=== PATIENT | male | born 1985 | race Caucasian/White ===

== ENCOUNTER 2018-11-01 16:21 | Inpatient (IN) ==
[2018-11-01 18:12] LABS: BASO# 0.04 X1000 (0.0-0.2); BASO% 0.6 % (0.0-0.8); EOS# 0.32 X1000 (0.0-0.7); EOS% 4.8 % (0.0-10.0); HEMATOCRIT 49.1 % (42.0-52.0); HEMOGLOBIN 17.6 g/dL (14.0-18.0); IMM GRAN# 0.02 X1000 (0.0-0.04); IMM GRAN% 0.3 % (0.0-0.5); LYMPH# 1.42 X1000 (1.2-3.4); LYMPH% 21.5 % (20.5-51.1); MCHC 35.8 g/dL (33-37); MCV 83.8 FL (81-99); MONO# 1.11 X1000 (0.11-0.59); MONO% 16.8 % (1.7-9.3); MPV 10.8 FL (7.4-10.4); PLT 213 X1000 (130-400); RBC 5.86 XMIL (4.7-6.1); RDW 16.2 % (11.5-14.5); WBC 6.61 X1000 (4.8-10.8)
--- NOTE | 2018-11-01 18:13 | PROVIDER DOCUMENTATION ---
HPI-Abdominal Pain/GI Problem - General Chief Complaint: Abdominal Pain Stated Complaint: ABD PAIN, N/V Time Seen by Provider: 11/01/18 17:06 Source: patient, family Allergies/Adverse Reactions: Patient Allergies Allergy/AdvReac Type Severity Reaction Status Date / Time bacitracin Allergy RASH Verified 09/03/16 18:25 [From Neosporin ([id number])] bacitracin zinc * Allergy RASH Verified 09/03/16 18:25 [From Neosporin ([id number])] neomycin sulfate * Allergy RASH Verified 09/03/16 18:25 [From Neosporin ([id number])] polymyxin B Allergy RASH Verified 09/03/16 18:25 [From Neosporin ([id number])] Home Medications: Home Medication List Medication Instructions Recorded Confirmed Last Taken Type NK [No Home Medications] 11/01/18 11/01/18 Unknown History - History of Present Illness-ABD Nature of Presenting Problems: PATIENT IS 33 Y/O PRESENTED WITH REDNESS IN BOTH EYES, LLQ PAIN AND VOMITED COUPLE TIMES, PATIENT COMPLAINED DARK URINE BUT NO DYSURIA WAS REPORTED. NO FEVER WAS REPORTED, PATIENT WAS DRINKER Abdominal Pain Onset Location: reports: LLQ Pain Radiation: reports: no radiation Quality of Pain: reports: dull Severity in ED: reports: mild Onset/Duration: reports: this morning Timing: reports: still present Activities at Onset: reports: none Exposure to sick contacts?: No Modifying Factors: improves with: nothing Associated Symptoms: denies: anxiety, back/neck pain, chest pain, constipation, cough, diaphoresis, shortness of breath Last BM: unsure Review of Systems - Adult - REVIEW OF SYSTEMS - ADULT Constitutional: denies: fever, fatique, night sweats Eyes: reports: redness Ears, Nose, Mouth & Throat: reports: no symptoms reported Cardiovascular: reports: no symptoms reported Respiratory: reports: no symptoms reported Gastrointestinal: reports: see HPI Genitourinary: reports: other (DARK URINE). denies: dysuria, discharge, flank pain, hematuria, urinary retention Musculoskeletal: reports: no symptoms reported Integumentary: reports: no symptoms reported Neurological: reports: no symptoms reported Psychiatric: reports: no symptoms reported Endocrine: reports: no symptoms reported Hematologic/Lymphatic: reports: no symptoms reported Allergic/Immunologic: reports: no symptoms reported Past History - Adult - PAST MEDICAL HISTORY-ADULT Review of Records: reports: Old Records Reviewed, Nursing Assessment Review, Med ications Reviewed Major Childhood Illnesses: reports: denies history Cardiovascular: reports: HTN Respiratory: reports: denies history Gastrointestinal: reports: denies history Obstetrical/Gynecological: reports: denies history Genitourinary: reports: denies history Musculoskeletal: reports: denies history Neurological: reports: denies history Endocrine/Immune: reports: denies history Other Conditions: reports: denies history - PRIOR SURGERIES/PROCEDURES Surgical/Procedure History: reports: reviewed, not pertinent - PRIOR HOSPITALIZATIONS Prior Hospitalizations: reports: none - IMMUNIZATION STATUS Childhood Immunizations: See Nurse Assessment Flu Vaccine: See Nurse Assessment - FAMILY HISTORY Family History: reviewed, not pertinent - SOCIAL HISTORY Smoking: cigarettes, greater than 1 pack/day Provider spent 3-5 mins advising pt. on dangers of tobacco.: Discussed manners to quit use, and f/u contacts for add'l counseling. Physical Exam-General - PHYSICAL EXAM-ADULT Initial Vital Signs Reviewed: Yes - CONSTITUTIONAL General Appearance: appears well, alert - EYES Eyes: PERRL/EOMI, other (REDNESS IN SCLERA) - HEAD, EARS, NOSE, MOUTH & THROAT HENMT: normocephalic/atraumatic, normal ENT inspection - NECK Neck: non-tender, supple - RESPIRATORY Respiratory: chest non-tender, lungs clear, normal breath sounds - CARDIOVASCULAR Cardiovascular: normal peripheral pulses, regular rate, rhythm, no edema, no gallop, no JVD, no murmur - GASTROINTESTINAL (ABDOMEN) Abdominal Exam: normal bowel sounds, non tender, soft, no organomegaly - LYMPHATIC Lymphatic: no adenopathy - MUSCULOSKELETAL Back Exam: normal inspection, no CVA tenderness, no vertebral tenderness. negative: CVA tenderness, ecchymosis Extremity: normal range of motion, non-tender, normal gait, normal inspection, no pedal edema - SKIN Integumentary: normal color - NEUROLOGIC Neurologic: occup therapist II-XII nml as tested, grossly normal, no motor/sensory deficits - PSYCHIATRIC Psych/Mental Status: normal mood/affect, normal thought content, normal thought process, oriented x 3 Progress - PLAN OF CARE/RESULTS Progress/Plan/Lab Results: Vital Signs - 8 hr 11/01/18 16:42 Temperature 98.7 F Pulse Rate 79 Respiratory Rate 18 Blood Pressure 169/108 O2 Sat by Pulse Oximetry 99 Laboratory Results - last 24 hr 11/01/18 16:46 POC Glucose 103 Orders Category Date Time Status FSBS [Finger Stick Blood Sugar (ED)] DIRECTED Care 11/01/18 16:44 Active Saline Loc DIRECTED Care 11/01/18 17:15 Active NPO Diet 11/01/18 17:[address] ABDOMEN/PELVIS W/O CONTRAST [CT] Stat Exams 11/01/18 17:15 Ordered AMYLASE [CHEM] Stat Lab 11/01/18 18:00 Received CBC WITH ELECTRONIC DIFF [HEME] Stat Lab 11/01/18 18:00 Results COMPREHENSIVE METABOLIC PANEL [CHEM] Stat Lab 11/01/18 18:00 Received LIPASE [CHEM] Stat Lab 11/01/18 18:[address] W/POSS RFLX CULT [URINALYSIS] Stat Lab 11/01/18 18:05 Ordered Laboratory Tests 11/01/18 11/01/18 11/01/18 16:46 18:00 18:00 WBC 6.61 RBC 5.86 Hgb 17.6 Hct 49.1 MCV 83.8 MCH 30.0 MCHC 35.8 RDW Std Deviation 16.2 H Plt Count 213 MPV 10.8 H Immature Gran % (Auto) 0.3 Neut % (Auto) 56.0 Lymph % (Auto) 21.5 Loup % (Auto) 16.8 H Eos % (Auto) 4.8 Baso % (Auto) 0.6 Immature Gran # (Auto) 0.02 Neut # (Auto) 3.70 Lymph # (Auto) 1.42 Loup # (Auto) 1.11 H Eos # (Auto) 0.32 Baso # (Auto) 0.04 Sodium Potassium Chloride Carbon Dioxide Anion Gap BUN Creatinine Estimated GFR/1.73 m2 BUN/Creatinine Ratio Glucose POC Glucose 103 Calculated Osmolality Calcium Total Bilirubin AST ALT Alkaline Phosphatase Total Protein Albumin Globulin Albumin/Globulin Ratio Amylase 26 Lipase Urine Source Urine Color Urine Clarity Urine pH Ur Specific [place] Urine Protein Urine Ketones Urine Blood Urine Nitrite Urine Bilirubin Urine Urobilinogen Urine Microscopic RBC Urine WBC Urine Microscopic WBC Ur Epithelial Cells Urine Crystals Urine Bacteria Urine Casts Urine Yeast Urine Glucose 11/01/18 11/01/18 18:00 18:00 WBC RBC Hgb Hct MCV MCH MCHC RDW Std Deviation Plt Count MPV Immature Gran % (Auto) Neut % (Auto) Lymph % (Auto) Loup % (Auto) Eos % (Auto) Baso % (Auto) Immature Gran # (Auto) Neut # (Auto) Lymph # (Auto) Loup # (Auto) Eos # (Auto) Baso # (Auto) Sodium 130 L Potassium 3.9 Chloride 91 L Carbon Dioxide 26 Anion Gap 13 BUN 6 L Creatinine 0.5 L Estimated GFR/1.73 m2 > 60 BUN/Creatinine Ratio 12 Glucose 123 H POC Glucose Calculated Osmolality 260 Calcium 9.2 Total Bilirubin 12.80 H AST 2154 H ALT 1912 H Alkaline Phosphatase 217 H Total Protein 8.1 Albumin 4.1 Globulin 4.0 Albumin/Globulin Ratio 1.0 Amylase Lipase 27 Urine Source CLEAN CATCH Urine Color YELLOW Urine Clarity CLEAR Urine pH 6.5 Ur Specific [place] 1.005 Urine Protein NEGATIVE Urine Ketones TRACE Urine Blood NEGATIVE Urine Nitrite NEGATIVE Urine Bilirubin 2+ A Urine Urobilinogen 1 Urine Microscopic RBC <10 Urine WBC TRACE A Urine Microscopic WBC <10 Ur Epithelial Cells <10 Urine Crystals NONE SEEN Urine Bacteria NEGATIVE Urine Casts NONE SEEN Urine Yeast NONE SEEN Urine Glucose NEGATIVE Discussed results and plan of care with patient. Patient agrees with plan and verbalizes understanding. Result Diagrams: 11/01/18 18:00 11/01/18 18:00 - CONSULTS/PCP/HOSPITALIST Notification #1 *Consult/PCP/Hospitalist*: Dr. Ni Time Discussed: 19:56 Reason/Comments: Admission Consult Disposition: Admit Departure - Departure Date of Disposition Decision: 11/01/18 Time of Disposition Decision: 19:19 DIAGNOSIS: Acute hepatitis, Hyponatremia Disposition: ADMITTED INPATIENT 09 Certified Medical Emergency: Emergent Condition: Stable Referrals and Follow-Ups: None,PCP [Primary Care Provider] - - Critical Care Note This patient required my direct & personal management of CC.: No Attestation - Physician/ AYUSH Attestation Patient care was provided by Advanced Practice Provider:: No The physician spent face to face time with patient:: Yes Advanced Practice Provider documentation review:: Supervising physician onsite and consulted in the evaluation and care of this patient. The physician did have a face to face encounter with the patient. - Physician/ AYUSH Attestation #2 Shift Change Time: 19:00 Patient care was provided by Advanced Practice Provider:: Yes Advanced Practice Provider:: Eric Garcia The physician spent face to face time with patient:: Yes Advanced Practice Provider documentation review:: Supervising physician onsite and consulted in the evaluation and care of this patient. The physician did have a face to face encounter with the patient.
[2018-11-01 18:23] LABS: BILIRUBIN URINE 2+ (NEGATIVE); BLOOD URINE NEGATIVE (NEGATIVE); CLARITY CLEAR (CLEAR); COLOR YELLOW; GLUCOSE URINE NEGATIVE (NEGATIVE); KETONE URINE TRACE mg/dL (NEGATIVE); LEUKOCYTES URINE TRACE (NEGATIVE); NITRITE URINE NEGATIVE (NEGATIVE); PH URINE 6.5; PROTEIN URINE NEGATIVE (NEGATIVE); SP GRAVITY URINE 1.005; UROBILINOGEN URINE 1 mg/dL
[2018-11-01 18:26] LABS: URINE SOURCE CLEAN CATCH
[2018-11-01 18:27] LABS: URINE BACTERIA NEGATIVE /HFP; URINE CAST NONE SEEN /LPF; URINE EPITHELIAL CELLS <10 /HPF (<10); URINE RBC <10 /HPF (<10); URINE WBC <10 /HPF (<10); URINE YEAST NONE SEEN /HPF
[2018-11-01 18:28] LABS: URINE CRYSTAL NONE SEEN /HPF
--- NOTE | 2018-11-01 19:04 | Diag Imaging Result Doc PS360 ---
CT ABDOMEN/PELVIS W/O CONTRAST - 11/01/2018 INDICATION: left flank pain, dark urine COMPARISON: None FINDINGS: The lung bases are clear and the heart size is normal. No radiodense renal stones. No hydronephrosis or hydroureter. No bowel obstruction or inflammation. No significant constipation. Urinary bladder, prostate, and rectum are normal. Bones are intact. IMPRESSION: Negative exam. This exam was performed using automated exposure control, adjustment of mA or kV according to patient size, and/or use of iterative reconstruction technique Electronically signed by Heath Ruiz 11/01/2018 7:02 PM
[2018-11-01 19:11] LABS: AGAP 13; ALBUMIN 4.1 g/dL (3.5-5.0); ALKALINE PHOSPHATASE 217 U/L (32-122); BUN 6 mg/dL (8-22); CALCIUM 9.2 mg/dL (8.8-10.2); CHLORIDE 91 mmol/L (98-107); COSMO 260; CREATININE 0.5 mg/dL (0.7-1.2); ESTIMATED GFR > 60; GLUCOSE 123 mg/dL (70-104); GOT 2154 U/L (10-34); GPT 1912 U/L (10-44); LIPASE 27 U/L (13-60); POTASSIUM 3.9 mmol/L (3.5-5.1); SODIUM 130 mmol/L (136-145); TCO2 26 mmol/L (25-35); TOTAL PROTEIN 8.1 g/dL (6.3-8.3)
[2018-11-01] MEDS ORDERED: NS 1,000 ML IV ONE ×2 (19:20→20:00)
[2018-11-01] MEDS ORDERED: ZOFRAN IV PRN (20:00)
[2018-11-01 20:10] LABS: INR 1.07; PROTIME 14.5 Seconds (11.0-16.0); PTT 34.8 Seconds (22.3-41.8)
[2018-11-01] MEDS ORDERED: NICODERM PATCH TD SCH (22:00)
[2018-11-01] MEDS ORDERED: APRESOLINE IV PRN (22:56)
[2018-11-01] MEDS ORDERED: APRESOLINE IV ONE (22:56)
[2018-11-02] MEDS ORDERED: NICODERM PATCH TD PRN (00:54)
[2018-11-02 07:16] LABS: BASO# 0.05 X1000 (0.0-0.2); BASO% 0.8 % (0.0-0.8); EOS# 0.29 X1000 (0.0-0.7); EOS% 4.9 % (0.0-10.0); HEMATOCRIT 45.7 % (42.0-52.0); HEMOGLOBIN 16.5 g/dL (14.0-18.0); IMM GRAN# 0.02 X1000 (0.0-0.04); IMM GRAN% 0.3 % (0.0-0.5); LYMPH# 1.36 X1000 (1.2-3.4); LYMPH% 22.9 % (20.5-51.1); MCH 30.2 PG (27-31); MCHC 36.1 g/dL (33-37); MCV 83.5 FL (81-99); MONO# 1.38 X1000 (0.11-0.59); MONO% 23.3 % (1.7-9.3); NEUT# 2.83 X1000 (1.4-6.5); NEUT% 47.8 % (42.2-75.2); PLT 205 X1000 (130-400); RBC 5.47 XMIL (4.7-6.1); RDW 16.2 % (11.5-14.5); WBC 5.93 X1000 (4.8-10.8)
[2018-11-02 07:27] LABS: AGAP 12; ALBUMIN 3.5 g/dL (3.5-5.0); ALKALINE PHOSPHATASE 181 U/L (32-122); BUN 5 mg/dL (8-22); CALCIUM 8.6 mg/dL (8.8-10.2); CHLORIDE 95 mmol/L (98-107); COSMO 263; CREATININE 0.5 mg/dL (0.7-1.2); ESTIMATED GFR > 60; GLUCOSE 87 mg/dL (70-104); POTASSIUM 4.3 mmol/L (3.5-5.1); SODIUM 133 mmol/L (136-145); TCO2 26 mmol/L (25-35); TOTAL PROTEIN 6.3 g/dL (6.3-8.3)
[2018-11-02 07:33] LABS: INR 1.24; PROTIME 16.2 Seconds (11.0-16.0)
[2018-11-02 07:34] LABS: PTT 35.4 Seconds (22.3-41.8)
[2018-11-02 07:40] LABS: GOT 1688 U/L (10-34); GPT 1475 U/L (10-44)
--- NOTE | 2018-11-02 08:23 | Diag Imaging Result Doc PS360 ---
EXAM: US GB < RUQ (LIMITED) - 11/02/2018 HISTORY: abd pain TECHNIQUE: Ultrasound gallbladder COMPARISON: 11/01/[address] renal stone search FINDINGS: The gallbladder appears moderately distended, measuring 9 cm in length by 4.3 cm in diameter. There are no gallstones or sludge identified. There is no abnormal gallbladder wall thickening or pericholecystic fluid identified. The technologist reports positive sonographic Alan's sign. The common bile duct is upper normal in caliber at 6 mm. There is a 3.4 x 3.5 x 3.7 cm hyperechoic area in the liver. Considerations include asymmetrical fatty infiltration, cavernous hemangioma, and other mass lesion. This is not discretely visible on the recent CT renal stone search. Doppler image shows hepatopedal flow in the portal vein. There is an apparent 1.5 cm lymph between the pancreas and liver. The visualized pancreas shows no discrete abnormality. The right kidney is unremarkable. Visualized portions of the aorta appear normal caliber. IMPRESSION: Moderately distended gallbladder. No evidence of gallstones. The technologist reports positive sonographic Alan's sign, but the gallbladder florian do not appear thickened. Upper normal caliber common bile duct at 6 mm. 3.4 x 3.5 x 3.7 cm hyperechoic area of liver. Considerations include asymmetrical fatty infiltration, cavernous hemangioma, and other mass lesion. CT abdomen with intravenous contrast could be considered for further evaluation. Mildly prominent lymph node between liver and pancreas. No visible pancreatic lesion. Electronically signed by Ludwig Diaz 11/02/2018 8:21 AM
[2018-11-02 08:38] LABS: EOS 2 % (1-10); LYMPHS 19 % (21-51); MONO 19 % (1-9); SEGS 59 % (42-75)
[2018-11-02] MEDS ORDERED: M.V.I.-12 10 ML, FOLIC ACID 1 MG, MAGNESIUM SULFATE 1 GM, THIAMINE 100 MG in NS 1,000 ML IV SCH (09:00)
--- NOTE | 2018-11-02 09:04 | HISTORY AND PHYSICAL ---
PRIMARY CARE PHYSICIAN: None. CHIEF COMPLAINT: Left lower quadrant pain, nausea and vomiting 2 to 3 times a day that began Tuesday and progressively has worsened. HISTORY OF PRESENTING ILLNESS: This is a 33-year-old male who presents to [facility] ER with complaints of left lower quadrant abdominal pain that radiated throughout his entire stomach. He had some vomiting 2 to 3 times a day when he tried to eat, could not hold anything down. These symptoms began on Tuesday and progressively worsened. He states that he drinks a pint of liquor and 4 to 5 beers daily and has been doing that for about 10 years. His workup in the emergency room showed a total bilirubin of 12.80, AST of 2154, ALT 1912, and alkaline phosphatase 217. We did a CT of the abdomen and pelvis that was negative. We did do an abdomen ultrasound that showed a moderately distended gallbladder. No evidence of gallstones, and the gallbladder wall did not appear thickened. He is being admitted for further evaluation and treatment. PAST MEDICAL HISTORY: Hypertension. PAST SURGICAL HISTORY: None. FAMILY HISTORY: Reviewed and noncontributory. SOCIAL HISTORY: Currently lives with his . Smokes a pack of cigarettes a day and has done so for approximately 15 years. Drinks 1 pint of liquor and 4 to 5 beers daily, and has done so for about 10 years. Denies any illicit drug use. ALLERGIES: He has no known drug allergies. HOME MEDICATIONS: He does not take any medications on a routine basis at this time. LABORATORY DATA: White blood cell count of 6.61, hemoglobin 17.6, hematocrit 49.1, and platelets 213,000. PT and INR of 14.5 and 1.07. Sodium was 130, potassium 3.9, chloride 91, CO2 26, BUN of 6, creatinine 0.5, glucose 123, total bilirubin of 12.8, AST 2154, ALT 1912 with an alkaline phosphatase of 217. Repeat labs this morning showed a total bilirubin of 12.20, AST down to 1688 and ALT down to 1475 with an alkaline phosphatase of 181. Urinalysis was negative. Urine drug screen showed none detected. Acetaminophen less than 1.2. CT of the abdomen and pelvis showed an impression of a negative exam. Abdominal ultrasound showed an impression of a moderately distended gallbladder. No evidence of gallstones. Technologist reported a positive sonographic Alan's sign, but the gallbladder florian do not appear thickened. Upper normal caliber common bile duct at 6 mm. He has a hyperechoic area of the liver. Considerations include asymmetrical fatty infiltration, cavernous hemangioma and other mass lesion, but his CT again was negative. REVIEW OF SYSTEMS: He denies any fever, chills, blurred vision, dizziness, chest pain, coughing, or shortness of breath. He has diffuse abdominal pain worse in the left lower quadrant, nausea or vomiting. Denied any diarrhea, constipation, burning or hurting with urination. PHYSICAL EXAMINATION: VITAL SIGNS: On arrival, he had a temperature of 98.7 degrees, pulse of 79, respirations 18, blood pressure 169/108, and saturating 99% on room air. GENERAL: This is a 33-year-old male who is sitting up in the bed and answers questions appropriately. HEENT: Normocephalic, atraumatic. Normal ENT inspection. Oropharynx and nares are clear. EYES: Pupils are equal, round, and reactive to light and accommodation. Extraocular movements are intact. He is noted to have bloodshot eyes of his sclera bilaterally. Certainly, could be reddened due to all of the vomiting he has been doing. NECK: Normal inspection. Normal range of motion. LUNGS: Clear to auscultation bilaterally with equal lung expansion and chest wall movement. HEART: Regular rate and rhythm. No murmurs, rubs, or gallops. ABDOMEN: Soft. There is tenderness to palpation throughout his abdomen. Bowel sounds are present x4 quadrants. MUSCULOSKELETAL: He has 5/5 strength x4 extremities. NEUROLOGICAL: The cranial nerves 2-12 appear grossly intact. ASSESSMENT: 1. Acute hepatitis secondary to ETOH abuse. 2. Hyponatremia. 3. Hypertension. 4. ETOH use and abuse. PLAN: He was admitted to the medical unit at [place], placed on telemetry, and healthy heart diet. We are obtaining a hepatitis profile and urine culture is pending. We have given him hydralazine 10 mg IV q.6h p.r.n. for systolic blood pressure greater than 180, diastolic greater than 100. Nicotine patch 21 mg transdermally daily. Zofran 4 mg IV q.4 hours p.r.n. I am going to give him a banana bag of fluids daily, and then normal saline at 75 mL an hour. Give him Ativan 1 mg IV q.4 hours p.r.n. for withdrawal symptoms of alcohol, and I am going to place him on a Librium taper. The patient does state that he wants to quit drinking now, so we will facilitate that during this hospitalization as well. We will monitor his blood pressure. If it continues to be elevated after he goes through the withdrawal of alcohol, then we may need to place him on an antihypertensive medication, but we will continue to evaluate. Recheck a CBC and CMP in the morning. Dictated by LIZABETH Morrissey for Alan Ni MD cc: LIZABETH Morrissey MD
[2018-11-02] MEDS: M.V.I.-12 10 ML, FOLIC ACID 1 MG, MAGNESIUM SULFATE 1 GM, THIAMINE 100 MG in NS 1,000 ML IV SCH (10:23)
[2018-11-02] MEDS: LIBRIUM PO SCH ×3 (10:24→21:48)
--- NOTE | 2018-11-02 11:15 | Diag Imaging Result Doc PS360 ---
EXAM: CT ABDOMEN W/CONTRAST - 11/02/2018 HISTORY: hepatic protocol, liver lesion TECHNIQUE: CT abdomen with intravenous contrast COMPARISON: 11/02/2018 ultrasound gallbladder, 11/01/[address] renal stone search FINDINGS: The liver demonstrates mildly heterogeneous attenuation. There is no discrete focal liver lesion identified. The heterogeneous attenuation may relate to asymmetrical mild fatty infiltration of the liver. The gallbladder is mildly distended as noted on the earlier ultrasound. There is a small amount of pericholecystic fluid which is most conspicuous near the base of the gallbladder. There are no calcified gallstones or gross pericholecystic inflammation identified. The spleen and adrenal glands are unremarkable. There is no pancreatic mass or inflammation identified. There are small retroperitoneal and mesenteric lymph nodes. The bilateral kidneys enhance homogeneously. There is no hydronephrosis. There is a tiny fat-containing umbilical hernia. There is no evidence of bowel obstruction. The appendix is unremarkable. There is no gas containing abscess identified. There is no free air or substantial free fluid identified. IMPRESSION: Mildly heterogeneous attenuation of liver suggesting asymmetrical fatty infiltration. No discrete focal liver lesion identified. Moderately distended gallbladder. Small amount of pericholecystic fluid. Early cholecystitis cannot be excluded. Small retroperitoneal and mesenteric lymph nodes. Tiny fat-containing umbilical hernia. This exam was performed using automated exposure control, adjustment of mA or kV according to patient size, and/or use of iterative reconstruction technique. Electronically signed by Ludwig Diaz 11/02/2018 11:12 AM
[2018-11-02] MEDS ORDERED: MEDROL DOSEPAK PO SCH (16:00)
--- NOTE | 2018-11-02 16:50 | HISTORY AND PHYSICAL ---
ADDENDUM This is a pleasant 33-year-old coming in with pain, abdominal pain, nausea, vomiting. He is a heavy drinker. He told me half a pint; he told the nurse practitioner this morning a full pint, 4 to 5 beers a day. His or significant other says it is a pints on the weekends definitely, which I am thinking is 6 to 8 drinks a day, possibly more than that. CT was unremarkable, but he had profound hyperbilirubinemia. On his eye exam, he also has some conjunctival hemorrhage. AST and ALT were both 2154 and 1688, 1912 and 1475. The patient was admitted for acute hepatitis. Unclear if this is alcoholic hepatitis versus other. We will continue to him to monitor hydration and follow. We will calculate Discriminant Function and follow. If he is not much improved, may need to consider a Gastroenterology consultation, but the patient is stable. This is a [id number] encounter note with Ruth Ahuja. cc: Alan Ni MD
[2018-11-02] MEDS: PROTONIX IV SCH (16:52)
[2018-11-02] MEDS: SODIUM CHLORIDE 0.9% INJ SCH (16:52)
[2018-11-02] MEDS: MEDROL PO SCH ×2 (16:54→21:48)
[2018-11-02] MEDS: NS 1,000 ML IV SCH (17:48)
[2018-11-02] MEDS: PLETAL PO SCH (21:48)
[2018-11-03] MEDS: LIBRIUM PO SCH ×4 (03:40→20:43)
[2018-11-03] MEDS: NS 1,000 ML IV SCH ×3 (06:54→23:25)
[2018-11-03 07:51] LABS: BASO# 0.01 X1000 (0.0-0.2); BASO% 0.2 % (0.0-0.8); EOS# 0.01 X1000 (0.0-0.7); EOS% 0.2 % (0.0-10.0); HEMATOCRIT 47.9 % (42.0-52.0); HEMOGLOBIN 17.1 g/dL (14.0-18.0); IMM GRAN# 0.01 X1000 (0.0-0.04); IMM GRAN% 0.2 % (0.0-0.5); LYMPH# 0.65 X1000 (1.2-3.4); LYMPH% 10.8 % (20.5-51.1); MCH 29.9 PG (27-31); MCHC 35.7 g/dL (33-37); MCV 83.7 FL (81-99); MONO# 0.41 X1000 (0.11-0.59); MONO% 6.8 % (1.7-9.3); MPV 11.2 FL (7.4-10.4); NEUT# 4.95 X1000 (1.4-6.5); NEUT% 81.8 % (42.2-75.2); PLT 240 X1000 (130-400); RBC 5.72 XMIL (4.7-6.1); WBC 6.04 X1000 (4.8-10.8)
[2018-11-03 08:07] LABS: AGAP 13; ALBUMIN 3.5 g/dL (3.5-5.0); ALKALINE PHOSPHATASE 193 U/L (32-122); BUN 5 mg/dL (8-22); CALCIUM 8.5 mg/dL (8.8-10.2); CHLORIDE 97 mmol/L (98-107); COSMO 265; CREATININE 0.4 mg/dL (0.7-1.2); ESTIMATED GFR > 60; GLUCOSE 123 mg/dL (70-104); POTASSIUM 4.5 mmol/L (3.5-5.1); SODIUM 133 mmol/L (136-145); TCO2 23 mmol/L (25-35)
[2018-11-03 08:19] LABS: GOT 1303 U/L (10-34); GPT 1366 U/L (10-44)
[2018-11-03] MEDS: M.V.I.-12 10 ML, FOLIC ACID 1 MG, MAGNESIUM SULFATE 1 GM, THIAMINE 100 MG in NS 1,000 ML IV SCH (09:28)
[2018-11-03] MEDS: MEDROL PO SCH ×2 (09:32→14:01)
--- NOTE | 2018-11-03 10:08 | PROGRESS NOTE ---
DATE: 11/03/2018 SUBJECTIVE: Patient had some epigastric pain this morning. He denies having any other complaints. OBJECTIVE: Vital Signs: Temperature 97.7 degrees, pulse 101 per minute, respiratory rate 19 per minute, blood pressure 124/80, and pulse oximetry 100% on room air. General: Patient is alert and oriented x3. He does not appear to be in any acute distress. Cardiovascular: First and second heart sounds are audible without any murmurs or gallops. Respiratory: No respiratory distress noted. Bilateral lung air entry is good without any rales or rhonchi. Gastrointestinal: Patient is morbidly obese. Abdomen is soft and slightly tender in epigastric area. Normal bowel sounds are present. DIAGNOSTIC DATA: CBC is nondiagnostic. Chemistry shows a total bilirubin of 12.10, AST 28896, and ALT 1366. In comparison, his bilirubin was 12.8, AST 2154 and ALT 1912 on admission 2 days ago. Gallbladder ultrasound showed moderately distended gallbladder with no evidence of gallstones, but technologist reported positive sonographic Alan sign. Gallbladder wall did not appear to be thickened, but the CBD was in the upper normal caliber limit at [address] scan of the abdomen with contrast showed moderately distended gallbladder with small amount of pericholecystic fluid. Early cholecystitis could not be ruled out. IMPRESSION: 1. Epigastric abdominal pain with transaminasemia and elevated bilirubin with signs of acute cholecystitis on CT scan and gallbladder ultrasound. 2. History of alcohol abuse with possible alcoholic hepatitis. 3. Hypertension. PLAN: The patient will be continued on IV fluids, and I am going to start him on IV Zosyn as well. We will keep him NPO and give him supportive care. I am going to obtain a surgical consultation to assist us in further evaluating this 33-year-old gentleman. Further recommendations will be as per hospital course. cc: Nader Taylor MD
[2018-11-03 10:17] LABS: HEPATITIS PROFILE ACUTE SEE COMMENTS
[2018-11-03] MEDS: ZOSYN 3.375 GM in NS 50 ML IV SCH ×3 (10:22→20:43)
--- NOTE | 2018-11-03 14:17 | Diag Imaging Result Doc PS360 ---
EXAM: HIDA SCAN W/ EJECTION FRACTION HISTORY: Poss cholecystits TECHNIQUE: Nuclear medicine HIDA scan COMPARISON: None. FINDINGS: 5.1 mCi Choletec administered. There is normal uptake of 30 pharmaceutical in the liver. Normal filling of the gallbladder. There is emptying into the small bowel. Ensure was given to calculate the gallbladder ejection fraction. This is determined to be only 9.7% at 60 minutes. This is well below the normal range. IMPRESSION: Abnormal exam with a below normal gallbladder ejection fraction. Electronically signed by Ezekiel Lucio 11/03/2018 2:15 PM
[2018-11-03] MEDS: PLETAL PO SCH ×2 (14:38→20:43)
[2018-11-03] MEDS: PROTONIX IV SCH (16:07)
[2018-11-03] MEDS: SODIUM CHLORIDE 0.9% INJ SCH (16:07)
[2018-11-04] MEDS: LIBRIUM PO SCH ×4 (02:38→20:11)
[2018-11-04] MEDS: ZOSYN 3.375 GM in NS 50 ML IV SCH ×3 (02:39→18:30)
[2018-11-04] MEDS: NS 1,000 ML IV SCH ×3 (02:58→22:50)
[2018-11-04 06:31] LABS: PLT 252 X1000 (130-400)
[2018-11-04 06:33] LABS: HEMATOCRIT 40.6 % (42.0-52.0); MCH 30.7 PG (27-31); MCHC 36.9 g/dL (33-37); RBC 4.86 XMIL (4.7-6.1)
[2018-11-04 06:34] LABS: MCV 83.5 FL (81-99); MPV 10.8 FL (7.4-10.4); NEUT% 75.1 % (42.2-75.2); RDW 17.1 % (11.5-14.5)
[2018-11-04 06:35] LABS: BASO% 0.1 % (0.0-0.8); EOS% 1.3 % (0.0-10.0); IMM GRAN% 0.2 % (0.0-0.5); NEUT# 7.77 X1000 (1.4-6.5)
[2018-11-04 06:36] LABS: BASO# 0.01 X1000 (0.0-0.2); EOS# 0.13 X1000 (0.0-0.7); IMM GRAN# 0.02 X1000 (0.0-0.04); MONO# 1.21 X1000 (0.11-0.59)
[2018-11-04 06:39] LABS: LYMPH% 11.6 % (20.5-51.1); MONO% 11.7 % (1.7-9.3)
[2018-11-04 06:52] LABS: AGAP 11; ALBUMIN 3.1 g/dL (3.5-5.0); ALKALINE PHOSPHATASE 205 U/L (32-122); BUN 8 mg/dL (8-22); CALCIUM 7.9 mg/dL (8.8-10.2); CHLORIDE 103 mmol/L (98-107); COSMO 274; CREATININE 0.6 mg/dL (0.7-1.2); ESTIMATED GFR > 60; GLUCOSE 105 mg/dL (70-104); SODIUM 138 mmol/L (136-145); TCO2 24 mmol/L (25-35); TOTAL PROTEIN 5.8 g/dL (6.3-8.3)
[2018-11-04 06:54] LABS: HEMOGLOBIN 14.9 g/dL (14.0-18.0); WBC 10.34 X1000 (4.8-10.8)
[2018-11-04 06:57] LABS: GOT 806 U/L (10-34); GPT 960 U/L (10-44)
--- NOTE | 2018-11-04 08:37 | CONSULTATION ---
DATE OF CONSULTATION: 11/04/2018 Mr. Chuck Lovelace is a 33-year-old white male who presented to [facility] Emergency Department Tuesday of this week with abdominal pain, nausea and vomiting and his noticed that his eyes were yellow. He also admitted to a decreased appetite. He was admitted on 11/01/2018 through the emergency department after a CT scan of his abdomen and pelvis was performed. That CT was read as essentially normal. He did have significantly elevated liver function tests with a total bilirubin of 12 and an ALT and AST within the thousands. An ultrasound of the gallbladder showed no stones and a repeat CT scan of the abdomen suggested a moderately distended gallbladder with some fluid but not a thickened gallbladder wall. We were asked to evaluate him for possible gallbladder disease. PAST MEDICAL HISTORY: Alcohol abuse. MEDICATIONS: None. ALLERGIES: Bacitracin. REVIEW OF SYSTEMS: He is a smoker. Otherwise 14 point review of systems was essentially negative. FAMILY HISTORY: Noncontributory. PHYSICAL EXAMINATION: General: Mr. Lovelace is a young white male who is awake, cooperative in no acute distress. He is of good weight. HEENT: He still has evidence of jaundice when looking at his eyes. There are no oral lesions. Lymph: No cervical or supraclavicular lymphadenopathy. Heart: Regular rate. Lungs: Clear. No work of breathing. Abdomen: Soft without tenderness. No previous scar. No evidence of hernia. No palpable mass. No costovertebral tenderness. Rectal: Examination was not performed. Extremities: He does have palpable peripheral pulses throughout. No peripheral edema. Neurological: He is alert and oriented x3 and appropriate. LABORATORY DATA: His liver function tests were elevated. X-rays of the gallbladder appeared to be within normal limits. IMPRESSION: Primary liver disease consistent with acute hepatitis. PLAN: Supportive care. I have discussed this with Dr. Taylor. cc: MD Alan Nichols MD
[2018-11-04] MEDS: PLETAL PO SCH ×2 (09:34→20:10)
--- NOTE | 2018-11-04 11:59 | PROGRESS NOTE ---
DATE: 11/04/2018 SUBJECTIVE: Patient still has some epigastric discomfort, although he feels much better as compared to yesterday. OBJECTIVE: Vital Signs: Temperature 97.5 degrees, pulse 79 per minute, respiratory 16 per minute, blood pressure 127/61, pulse oximetry 99% on room air. General: Patient is alert and oriented x3. He does not appear to be in any acute distress. Cardiovascular System: First and second heart sounds are audible without any murmurs or gallops. Respiratory System: Bilateral lung air entry is moderately decreased but there are no rales or rhonchi present on auscultation. Gastrointestinal: Patient is morbidly obese. Abdomen is soft and slightly tender on deep palpation in the epigastric area. No guarding or rigidity are present. Normal bowel sounds are present. LABORATORY AND DIAGNOSTIC DATA: CBC is nondiagnostic. Comprehensive metabolic panel showed AST of 806 and ALT 960, along with alkaline phosphatase 205. In comparison, his AST was 1303 and ALT 1366 yesterday. His total bilirubin has also improved from 12.10 yesterday to 8.60 today. His HIDA scan was found to be abnormal with below normal gallbladder ejection fraction. He also had abdominal CT scan on 11/02/2018 that showed moderately distended gallbladder with small amount of pericholecystic fluid. Surgical consultation with Dr. Townsend was obtained, who does not think that he has acute cholecystitis but rather he is having acute alcoholic hepatitis that is already gradually getting better. IMPRESSION: 1. Jaundice with transaminasemia secondary to alcoholic hepatitis. 2. Hypertension. PLAN: The patient will be continued on IV fluids along with IV Zosyn and we are going to continue giving him supportive care including proton pump inhibitors. We are going to repeat labs including CBC, CMP, amylase, and lipase tomorrow and see if there is any further improvement. If clinically he feels better, he can probably be discharged home tomorrow. cc: MD Alan Alvarez MD
[2018-11-04] MEDS: M.V.I.-12 10 ML, FOLIC ACID 1 MG, MAGNESIUM SULFATE 1 GM, THIAMINE 100 MG in NS 1,000 ML IV SCH (12:26)
[2018-11-04] MEDS ORDERED: SODIUM CHLORIDE 0.9% 10 ML ONE (13:32)
[2018-11-04] MEDS: SODIUM CHLORIDE 0.9% INJ SCH (16:30)
[2018-11-04] MEDS: PROTONIX IV SCH (16:30)
[2018-11-04] MEDS ORDERED: MORPHINE IV ONE (21:04)
[2018-11-05] MEDS: ZOSYN 3.375 GM in NS 50 ML IV SCH ×5 (00:10→23:49)
[2018-11-05] MEDS: LIBRIUM PO SCH (03:21)
[2018-11-05 06:02] LABS: BASO# 0.04 X1000 (0.0-0.2); BASO% 0.6 % (0.0-0.8); EOS% 4.5 % (0.0-10.0); HEMATOCRIT 40.7 % (42.0-52.0); HEMOGLOBIN 14.5 g/dL (14.0-18.0); IMM GRAN# 0.01 X1000 (0.0-0.04); IMM GRAN% 0.1 % (0.0-0.5); LYMPH# 1.45 X1000 (1.2-3.4); LYMPH% 21.7 % (20.5-51.1); MCH 29.7 PG (27-31); MCHC 35.6 g/dL (33-37); MCV 83.4 FL (81-99); MONO# 1.19 X1000 (0.11-0.59); MONO% 17.8 % (1.7-9.3); MPV 10.6 FL (7.4-10.4); NEUT% 55.3 % (42.2-75.2); PLT 259 X1000 (130-400); RBC 4.88 XMIL (4.7-6.1); RDW 17.7 % (11.5-14.5); WBC 6.69 X1000 (4.8-10.8)
[2018-11-05 06:27] LABS: AGAP 11; ALKALINE PHOSPHATASE 167 U/L (32-122); AMYLASE 24 U/L (20-200); BUN 6 mg/dL (8-22); CALCIUM 7.8 mg/dL (8.8-10.2); CHLORIDE 103 mmol/L (98-107); COSMO 275; CREATININE 0.7 mg/dL (0.7-1.2); ESTIMATED GFR > 60; GLUCOSE 90 mg/dL (70-104); LIPASE 25 U/L (13-60); POTASSIUM 3.8 mmol/L (3.5-5.1); SODIUM 139 mmol/L (136-145); TCO2 24 mmol/L (25-35); TOTAL PROTEIN 5.6 g/dL (6.3-8.3)
[2018-11-05 06:42] LABS: GOT 912 U/L (10-34); GPT 992 U/L (10-44)
[2018-11-05] MEDS: M.V.I.-12 10 ML, FOLIC ACID 1 MG, MAGNESIUM SULFATE 1 GM, THIAMINE 100 MG in NS 1,000 ML IV SCH (09:02)
[2018-11-05] MEDS: PLETAL PO SCH ×2 (09:02→21:08)
--- NOTE | 2018-11-05 10:41 | PROGRESS NOTE ---
DATE: 11/05/2018 SUBJECTIVE: The patient denies having any acute complaints this morning but states that he has slight discomfort on the left side of his abdomen. He feels much better as compared to the previous days, however. OBJECTIVE: Vital Signs: Temperature 98.3 degrees, pulse 74 per minute, respiratory rate 16 per minute, blood pressure 145/75, pulse oximetry 99% on room air. General: Patient is alert and oriented x3. He does not appear to be in any acute distress. Cardiovascular System: First and second heart sounds are audible without any murmurs or gallops. Respiratory System: No respiratory distress noted. Bilateral lung air entry is good without any rales or rhonchi. Gastrointestinal System: The patient is morbidly obese. Abdomen is soft and slightly tender on deep palpation in the epigastric area. No guarding or rigidity were present. Normal bowel sounds are present. DIAGNOSTIC DATA: CBC is nondiagnostic. Comprehensive metabolic panel shows a total bilirubin of 7.8, AST 912, and ALT 992. In comparison, his chemistry showed similar abnormalities yesterday with slight worsening this morning. IMPRESSION: New jaundice with transaminasemia secondary to alcoholic hepatitis. PLAN: We are going to continue with IV Zosyn since there was some pericholecystic fluid and questionable cholecystitis, although surgical consultation with Dr. North was obtained who stated that he does not appear to have acute cholecystitis. He has responded well with IV antibiotics, however. We are going to continue him on IV fluids along with IV Protonix. Further recommendations will be given as per hospital course. cc: MD Alan Alvarez MD
[2018-11-05] MEDS: NS 1,000 ML IV SCH ×2 (13:10→21:10)
[2018-11-05] MEDS: PROTONIX IV SCH (16:13)
--- NOTE | 2018-11-05 16:24 | PROGRESS NOTE ---
DATE: 11/05/2018 Mr. Chuck Lovelace is a 33-year-old white male with a history of alcohol abuse, who has been hospitalized with acute hepatitis. We were asked to see him about his gallbladder, but there are no stones or evidence of acute cholecystitis. He is resting comfortably this afternoon. When he eats, he states he has some epigastric abdominal discomfort, but his abdomen is soft. He is having flatus. He has not had a recent bowel movement. His liver function tests are slowly improving. His total bilirubin is 8, his AST is 912, and his ALT is 992, but they are trending down slowly. Electrolytes are within normal limits. White blood cell count is normal. Hematocrit is 41%. He is on a heart healthy diet. He is on IV antibiotics prophylactically. We will add Colace as a stool softener. cc: MD Alan Nichols MD
[2018-11-05] MEDS: COLACE PO SCH (21:08)
[2018-11-05] MEDS: MOTRIN PO PRN (23:49)
[2018-11-06] MEDS: NS 1,000 ML IV SCH ×3 (03:36→21:17)
[2018-11-06] MEDS: ZOSYN 3.375 GM in NS 50 ML IV SCH ×4 (05:37→23:46)
[2018-11-06 06:44] LABS: BASO# 0.03 X1000 (0.0-0.2); BASO% 0.6 % (0.0-0.8); EOS# 0.36 X1000 (0.0-0.7); EOS% 6.7 % (0.0-10.0); HEMATOCRIT 42.7 % (42.0-52.0); HEMOGLOBIN 15.3 g/dL (14.0-18.0); IMM GRAN# 0.02 X1000 (0.0-0.04); IMM GRAN% 0.4 % (0.0-0.5); LYMPH# 1.42 X1000 (1.2-3.4); LYMPH% 26.3 % (20.5-51.1); MCH 29.9 PG (27-31); MCHC 35.8 g/dL (33-37); MCV 83.6 FL (81-99); MONO# 0.89 X1000 (0.11-0.59); MONO% 16.5 % (1.7-9.3); MPV 10.2 FL (7.4-10.4); NEUT# 2.68 X1000 (1.4-6.5); NEUT% 49.5 % (42.2-75.2); PLT 250 X1000 (130-400); RBC 5.11 XMIL (4.7-6.1); RDW 18.3 % (11.5-14.5)
[2018-11-06 07:03] LABS: AGAP 13; ALKALINE PHOSPHATASE 195 U/L (32-122); BUN 5 mg/dL (8-22); CHLORIDE 104 mmol/L (98-107); COSMO 278; CREATININE 0.7 mg/dL (0.7-1.2); ESTIMATED GFR > 60; GLUCOSE 95 mg/dL (70-104); POTASSIUM 3.4 mmol/L (3.5-5.1); SODIUM 141 mmol/L (136-145); TCO2 25 mmol/L (25-35); TOTAL PROTEIN 5.8 g/dL (6.3-8.3)
[2018-11-06 07:22] LABS: GOT 948 U/L (10-34); GPT 992 U/L (10-44)
[2018-11-06] MEDS: M.V.I.-12 10 ML, FOLIC ACID 1 MG, MAGNESIUM SULFATE 1 GM, THIAMINE 100 MG in NS 1,000 ML IV SCH (08:53)
[2018-11-06] MEDS: PLETAL PO SCH ×2 (08:53→21:17)
[2018-11-06] MEDS: COLACE PO SCH ×2 (08:53→21:17)
--- NOTE | 2018-11-06 15:33 | PROGRESS NOTE ---
DATE: 11/06/2018 SUBJECTIVE: Patient this morning notes that he is still having some side pain but states overall he is a little bit better. Denies any current vomiting or nausea. OBJECTIVE: Vital Signs: Temperature 37.9, pulse 70, respiratory 18, and BP 136/76. General: Patient is awake and alert. He is in no current distress. He is pleasant to talk with. He does not appear to be in any acute alcohol withdrawal. HEENT: Normocephalic. Neck: Supple. CARDIOVASCULAR: Regular rate. Chest: Clear. Abdomen: Soft. Extremities: Moves all extremities. ASSESSMENT: 1. Alcoholic hepatitis. AST and ALT continue to improve, currently down to 938 and 950. at 2154 and 1912. 2. Jaundice. Bilirubin also continues to improve, currently down to 7.7. PLAN: We will continue IV fluids. Continue Protonix and Zosyn. We will follow. cc: Mohsen Lopez MD MTDD
[2018-11-06] MEDS: SODIUM CHLORIDE 0.9% INJ SCH (17:34)
[2018-11-06] MEDS: PROTONIX IV SCH (17:34)
[2018-11-07] MEDS: NS 1,000 ML IV SCH ×2 (04:12→20:54)
[2018-11-07] MEDS: ZOSYN 3.375 GM in NS 50 ML IV SCH ×4 (05:43→23:57)
[2018-11-07 06:57] LABS: BASO# 0.04 X1000 (0.0-0.2); BASO% 0.6 % (0.0-0.8); EOS# 0.46 X1000 (0.0-0.7); EOS% 7.1 % (0.0-10.0); HEMATOCRIT 39.9 % (42.0-52.0); HEMOGLOBIN 14.5 g/dL (14.0-18.0); IMM GRAN# 0.04 X1000 (0.0-0.04); IMM GRAN% 0.6 % (0.0-0.5); LYMPH% 21.5 % (20.5-51.1); MCHC 36.3 g/dL (33-37); MCV 82.6 FL (81-99); MONO# 1.37 X1000 (0.11-0.59); MONO% 21.1 % (1.7-9.3); MPV 10.5 FL (7.4-10.4); NEUT# 3.19 X1000 (1.4-6.5); NEUT% 49.1 % (42.2-75.2); PLT 264 X1000 (130-400); RBC 4.83 XMIL (4.7-6.1); RDW 18.2 % (11.5-14.5)
[2018-11-07 07:18] LABS: AGAP 12; ALBUMIN 2.9 g/dL (3.5-5.0); ALKALINE PHOSPHATASE 161 U/L (32-122); BUN 5 mg/dL (8-22); CALCIUM 7.9 mg/dL (8.8-10.2); CHLORIDE 101 mmol/L (98-107); COSMO 271; CREATININE 0.7 mg/dL (0.7-1.2); ESTIMATED GFR > 60; GLUCOSE 95 mg/dL (70-104); GOT 783 U/L (10-34); GPT 832 U/L (10-44); POTASSIUM 3.8 mmol/L (3.5-5.1); SODIUM 137 mmol/L (136-145); TCO2 24 mmol/L (25-35); TOTAL PROTEIN 5.1 g/dL (6.3-8.3)
[2018-11-07 07:44] LABS: BASO 1 % (0-1); EOS 7 % (1-10); LYMPHS 19 % (21-51); MONO 18 % (1-9); SEGS 55 % (42-75)
[2018-11-07] MEDS: M.V.I.-12 10 ML, FOLIC ACID 1 MG, MAGNESIUM SULFATE 1 GM, THIAMINE 100 MG in NS 1,000 ML IV SCH (09:04)
[2018-11-07] MEDS: PLETAL PO SCH ×2 (09:06→20:54)
[2018-11-07] MEDS: COLACE PO SCH ×2 (09:06→20:54)
[2018-11-07] MEDS: MOTRIN PO PRN (09:36)
[2018-11-07] MEDS: SODIUM CHLORIDE 0.9% INJ SCH (17:13)
[2018-11-07] MEDS: PROTONIX IV SCH (17:13)
--- NOTE | 2018-11-07 22:41 | PROGRESS NOTE ---
DATE: 11/07/2018 SUBJECTIVE: The patient overall notes that he is feeling a little bit better. He is still having some nausea and abdominal pain. States he is drinking better. Denies any fevers or chills. Denies any withdrawal-type symptoms. OBJECTIVE: Temperature 98.4, pulse 91, respiratory 18, BP 138/72. General: The patient is awake, alert. He is in no acute distress. HEENT: Normocephalic. Neck supple. CV: Regular rate. Chest clear. Abdomen soft. station tender in the right upper quadrant, but mildly. Extremities: Moves all extremities. ASSESSMENT: 1. Acute alcoholic hepatitis. 2. Hyperbilirubinemia. 3. Chronic alcoholism. The patient currently is stable and is in no withdrawal. PLAN: We will continue IV fluids, IV Zosyn. We will ask Gastroenterology to see in consultation regarding his hyperbilirubinemia and his elevated LFTs, and we will follow. cc: Mohsen Lopez MD
[2018-11-08] MEDS: MOTRIN PO PRN ×2 (01:36→17:41)
[2018-11-08] MEDS: ZOSYN 3.375 GM in NS 50 ML IV SCH ×4 (06:00→23:33)
[2018-11-08 07:11] LABS: BASO# 0.03 X1000 (0.0-0.2); BASO% 0.5 % (0.0-0.8); EOS# 0.43 X1000 (0.0-0.7); EOS% 7.3 % (0.0-10.0); HEMATOCRIT 39.6 % (42.0-52.0); HEMOGLOBIN 14.2 g/dL (14.0-18.0); IMM GRAN# 0.02 X1000 (0.0-0.04); IMM GRAN% 0.3 % (0.0-0.5); LYMPH% 20.5 % (20.5-51.1); MCHC 35.9 g/dL (33-37); MCV 83.5 FL (81-99); MONO# 1.26 X1000 (0.11-0.59); MONO% 21.5 % (1.7-9.3); MPV 10.4 FL (7.4-10.4); NEUT# 2.92 X1000 (1.4-6.5); NEUT% 49.9 % (42.2-75.2); PLT 275 X1000 (130-400); RBC 4.74 XMIL (4.7-6.1); RDW 18.7 % (11.5-14.5); WBC 5.86 X1000 (4.8-10.8)
[2018-11-08 07:16] LABS: EOS 8 % (1-10); LYMPHS 20 % (21-51); MONO 17 % (1-9); SEGS 55 % (42-75)
[2018-11-08 07:21] LABS: AGAP 12; ALBUMIN 2.6 g/dL (3.5-5.0); ALKALINE PHOSPHATASE 170 U/L (32-122); BUN 5 mg/dL (8-22); CALCIUM 7.8 mg/dL (8.8-10.2); CHLORIDE 106 mmol/L (98-107); COSMO 275; CREATININE 0.6 mg/dL (0.7-1.2); ESTIMATED GFR > 60; GLUCOSE 94 mg/dL (70-104); POTASSIUM 4.1 mmol/L (3.5-5.1); SODIUM 139 mmol/L (136-145); TCO2 21 mmol/L (25-35)
[2018-11-08 07:34] LABS: GOT 809 U/L (10-34); GPT 786 U/L (10-44)
[2018-11-08] MEDS: M.V.I.-12 10 ML, FOLIC ACID 1 MG, MAGNESIUM SULFATE 1 GM, THIAMINE 100 MG in NS 1,000 ML IV SCH (09:13)
[2018-11-08] MEDS: PLETAL PO SCH ×2 (09:13→21:45)
[2018-11-08] MEDS: NS 1,000 ML IV SCH ×3 (09:13→21:47)
[2018-11-08] MEDS: COLACE PO SCH ×2 (09:13→21:45)
[2018-11-08 10:20] LABS: INR 1.11; PROTIME 14.9 Seconds (11.0-16.0)
[2018-11-08] MEDS: SODIUM CHLORIDE 0.9% INJ SCH (17:42)
[2018-11-08] MEDS: PROTONIX IV SCH (17:42)
--- NOTE | 2018-11-08 19:20 | PROGRESS NOTE ---
DATE: 11/08/2018 SUBJECTIVE: Mr. Chuck Lovelace has been [facility] with [facility]. He has also had images of his gallbladder which showed no stones, no evidence of wall thickening of the gallbladder. His white blood cell count has been normal. HIDA scan did show a lower ejection fraction. With supportive care, his liver function has slowly improved. ASSESSMENT AND PLAN: He has been transferred to [facility] for consultation with GI Medicine for his liver disease. He has had a CT scan of his abdomen and pelvis. He has also had an ultrasound of his gallbladder and a HIDA scan. We do not have plans for a cholecystectomy. cc: Asia Townsend MD
--- NOTE | 2018-11-08 23:30 | PROGRESS NOTE ---
DATE: 11/08/2018 SUBJECTIVE: Patient notes overall he is feeling better. No nausea, no wheezing, no bleeding. Denies any fevers or chills. States his abdominal pain is also improved. PHYSICAL EXAM: Vital signs: Temperature 98.4 degrees, pulse 91, respiratory 18, BP 138/73. General: Patient is very pleasant to talk with. He is in no current respiratory distress. HEENT: Normocephalic. Neck: Supple. CARDIOVASCULAR: Regular rate. Chest: Clear. Abdomen: Soft, still having some mild tenderness in the right upper quadrant. Extremities: Moves all extremities. ASSESSMENT: 1. Acute hepatitis. AST and ALT are down to 800 and 832, total max at 2154 and 1912. 2. Hyperbilirubinemia. Total bilirubin is still elevated at 7.9. 3. Alcoholic hepatitis. 4. Chronic alcoholism. PLAN: We will continue patient in the hospital. We will transfer to [facility] for GI to see. Overall, his LFTs continue to improve though his bilirubin remains elevated, may need further workup for gallbladder dysfunction. cc: Mohsen Lopez MD
[2018-11-09] MEDS: ZOSYN 3.375 GM in NS 50 ML IV SCH ×3 (06:28→17:19)
[2018-11-09] MEDS: NS 1,000 ML IV SCH ×2 (06:28→21:19)
[2018-11-09 06:41] LABS: INR 1.09
[2018-11-09 06:45] LABS: BASO# 0.03 X1000 (0.0-0.2); BASO% 0.5 % (0.0-0.8); HEMATOCRIT 39.3 % (42.0-52.0); HEMOGLOBIN 14.1 g/dL (14.0-18.0); IMM GRAN# 0.02 X1000 (0.0-0.04); IMM GRAN% 0.3 % (0.0-0.5); LYMPH# 1.31 X1000 (1.2-3.4); LYMPH% 22.8 % (20.5-51.1); MCHC 35.9 g/dL (33-37); MCV 83.6 FL (81-99); MONO# 1.48 X1000 (0.11-0.59); MONO% 25.8 % (1.7-9.3); MPV 10.4 FL (7.4-10.4); NEUT% 43.6 % (42.2-75.2); PLT 253 X1000 (130-400); RDW 18.6 % (11.5-14.5); WBC 5.74 X1000 (4.8-10.8)
[2018-11-09 07:03] LABS: AGAP 11; ALB/GLOB RATIO 1.1; ALBUMIN 2.6 g/dL (3.5-5.0); ALKALINE PHOSPHATASE 177 U/L (32-122); BUN 7 mg/dL (8-22); CHLORIDE 110 mmol/L (98-107); COSMO 275; CREATININE 0.8 mg/dL (0.7-1.2); ESTIMATED GFR > 60; GLUCOSE 82 mg/dL (70-104); POTASSIUM 3.7 mmol/L (3.5-5.1); SODIUM 139 mmol/L (136-145); TCO2 18 mmol/L (25-35); TOTAL BILIRUBIN 8.86 mg/dL (0.20-1.00)
[2018-11-09 07:12] LABS: GOT 789 U/L (10-34); GPT 737 U/L (10-44)
[2018-11-09 07:14] LABS: EOS 6 % (1-10); LYMPHS 22 % (21-51); MONO 14 % (1-9); SEGS 48 % (42-75)
[2018-11-09] MEDS: PLETAL PO SCH ×2 (08:41→21:21)
[2018-11-09] MEDS: M.V.I.-12 10 ML, FOLIC ACID 1 MG, MAGNESIUM SULFATE 1 GM, THIAMINE 100 MG in NS 1,000 ML IV SCH (08:41)
[2018-11-09] MEDS: COLACE PO SCH ×2 (08:41→21:21)
[2018-11-09] MEDS: TRENTAL PO SCH ×3 (08:54→17:20)
[2018-11-09] MEDS: LACTULOSE PO SCH ×2 (09:07→21:21)
[2018-11-09] MEDS: ATIVAN IV PRN ×3 (12:10→21:38)
--- NOTE | 2018-11-09 15:05 | GASTROENTEROLOGY PROGRESS NOTE ---
See dictated consult MTDD
--- NOTE | 2018-11-09 15:15 | PROGRESS NOTE ---
DATE: 11/09/2018 SUBJECTIVE: Patient is resting comfortably in bed. He is complaining of mild headache. He denies fever or chills. His abdominal pain is getting better. OBJECTIVE: Vital Signs: Temperature 97.8 degrees, pulse 94, respiratory rate 14, blood pressure 108/66, and oxygen saturation 95% on room air. HEENT: Head normocephalic. No trauma. PERRLA. Icteric sclera. Skin: Jaundice. Neck: Supple. No JVD. Central trachea. Chest: Clear to auscultation. No wheezing. No rales. Abdomen: Soft. He is still having some tenderness to palpation at the level of the epigastric and right upper quadrant. Mild distention. Positive bowel sounds. Extremities: No edema. No clubbing. No cyanosis. Neurological: The patient is alert and oriented x3. No focal deficits. LABORATORY: WBC 5.7, hemoglobin 14.1, hematocrit 39.3, and platelets 253,000. Sodium 139, potassium 3.7, chloride 110, bicarbonate 18, BUN 7, creatinine 0.8, glucose 82, calcium 8, total bilirubin 8.8, AST 789, ALT 737, alkaline phosphatase 177 and albumin 2.6. ASSESSMENT AND PLAN: 1. Likely alcoholic hepatitis. AST and ALT are trending down compared with admission. His abdominal pain is getting better. We had a nice conversation about alcohol abuse. I recommended to stop drinking alcohol completely. He seems to understand. Also, I had this kind of conversation with the family. Gastroenterology Department evaluated this patient. Pending lab work. 2. Elevated LFTs likely secondary to #1. 3. Chronic alcoholism. This patient has been advised against alcohol abuse. I will continue with daily cessation education. 4. Hepatitis panel is negative. We will continue to monitor. It looks like a check clerk at [facility] has been consulted, and the doctor is aware of the patient. Her name is Dr. Sewell. Upon discharge, he needs to follow up with this doctor. cc: Yony Mario MD
--- NOTE | 2018-11-09 16:01 | GASTROENTEROLOGY CONSULTATION ---
DATE: 11/09/2018 ATTENDING PHYSICIAN: Yony Mario MD PRIMARY CARE DOCTOR: None. REASON FOR CONSULTATION: Elevated liver enzymes and jaundice. HISTORY OF PRESENT ILLNESS: Mr. Lovelace is a 33-year-old male, who was admitted on 11/01/2018 to [facility] for abdominal pain in the left lower quadrant and nausea/vomiting which started on Tuesday before. According the patient, he drinks a pint of liquor (whiskey) every day and drinks 4 to 5 beers daily, and he has been doing that for more than 10 years. He was noted to have elevated liver enzymes in the form of AST of 2154, ALT of 1912, and total bilirubin of 12.8. On admission, he had imaging in the form of ultrasound and CT scan, which showed evidence of asymmetric fatty infiltration. His HIDA scan showed evidence of low EF of 9.7% of the gallbladder. He was transferred to [facility] for further workup. The patient is gradually getting better. He denies any abdominal pain. He denies any nausea or vomiting. He denies any vomiting blood or passing blood in the stools. His abdominal pain is slowly improving. He was on ibuprofen, but we have stopped that. The patient denies any prior history of liver disease. He denies any family history of liver disease. PAST MEDICAL HISTORY: Hypertension and alcoholism. PAST SURGICAL HISTORY: None. FAMILY HISTORY: Noncontributory. He denies any history of liver disease in the family. SOCIAL HISTORY: He and lives with his . He smokes a pack of cigarettes per day. He has done that for approximately 15 years. He drinks 1 pint of hard liquor (whiskey) and 4 to 5 beers daily for more than 10 years. He denies any illicit drug abuse. ALLERGIES: No known drug allergies. MEDICATIONS IN THE HOSPITAL: Include: Pletal, Colace, hydralazine, lactulose, Ativan, multivitamin, NicoDerm patch, normal saline 75 mL per hour, Zofran, Protonix, Trental, Zosyn. DIET: He is on a heart healthy diet. REVIEW OF SYSTEMS: Denies any fevers, rigors, chills, chest pain, shortness of breath, dyspnea at rest. Denies any vomiting blood or passing blood in the stools. Denies any arthritis. Denies any neurologic complaints. Did have abdominal pain in the left lower quadrant, but has improved. PHYSICAL EXAMINATION: Vital Signs: Temperature 97.8, pulse rate of 94, respiratory rate of 14, blood pressure 108/63, saturating 94% room air. Weight: Body weight of 208 pounds 6 ounces. BMI 27.5 kg/m2. General: The patient is moderately built, moderately nourished, lying in bed, in no acute distress. HEENT: No pallor. Icteric sclerae. Pupils equal, reactive to light and accommodation. Neck: Supple. Abdomen: Soft, nontender, nondistended. No guarding or rebound. Extremities: No cyanosis, clubbing. Neurologic: He is alert, awake, oriented x3. DIAGNOSTIC STUDIES: Hemoglobin is 14.1, hematocrit 39.3, white count 5.74, platelet count of 253,000. Sodium of 139, potassium 3.7, chloride 110, bicarbonate of 18, anion gap of 11, BUN of 7, creatinine 0.8, glucose of 82, calcium is 8, total bilirubin is 8.86, AST 739, ALT 737, alkaline phosphatase 177, total protein 5, albumin of 2.6. INR 1.09, PT of 15. His hepatitis panel is negative. His CARLITO is positive and anti-DS DNA is 179, and less than 200 is normal. Antimitochondrial antibody is less than 0.1. Antismooth muscle antibody positive 1:160. His toxicology screen was negative for Tylenol. Alcohol level was 0. Imaging in the form of CT scan of the abdomen and pelvis showed evidence of mild heterogeneous attenuation of liver suggesting asymmetrical fatty infiltration. No discrete focal liver lesion identified. Moderately distended gallbladder. Small amount of pericholecystic fluid. Small retroperitoneal mesenteric lymph nodes and tiny fat containing umbilical hernia. Ultrasound of the abdomen was done, which showed moderately distended gallbladder and the common bile duct at 6 mm. IMPRESSION AND PLAN: 1. Alcoholic hepatitis. His liver enzymes are trending down. Continue to watch the liver enzymes closely. We will discontinue ibuprofen, as it can worsen hepatotoxicity. 2. The patient was counseled to quit alcohol completely. He will receive a daily banana bag and multivitamin. We will start him on pentoxifylline 4 mg p.o. t.i.d. 3. Alcoholism. Patient was again counseled to quit alcohol completely. 4. Gastrointestinal (GI) prophylaxis. PPIs. 5. Gallbladder dyskinesia. Dr. Townsend is on board. 6. Positive Antismooth muscle antibody and positive CARLITO. We will check serum protein electrophoresis. At some point, the patient will need liver biopsy for which we will wait until the acute alcoholic hepatitis resolves. If his liver enzymes continue to be elevated, then we will schedule him for ultrasound-guided liver biopsy. 7. Constipation. We will start him on lactulose 30 mL p.o. b.i.d., and he will continue the Colace 100 mg p.o. b.i.d. 8. Patient counseled to quit smoking completely. The above plans were discussed with the patient, and all questions answered. Please call us with any questions. Discussed with Dr Lino on phone. cc: MD Armand Castro Unknown MTDD
[2018-11-09] MEDS: PROTONIX IV SCH (17:20)
[2018-11-09] MEDS: SODIUM CHLORIDE 0.9% INJ SCH (17:20)
[2018-11-10] MEDS: ZOSYN 3.375 GM in NS 50 ML IV SCH ×3 (00:40→12:42)
[2018-11-10] MEDS: ATIVAN IV PRN ×3 (02:25→12:43)
[2018-11-10 06:21] LABS: AGAP 12; ALB/GLOB RATIO 1.1; ALBUMIN 2.8 g/dL (3.5-5.0); ALKALINE PHOSPHATASE 176 U/L (32-122); BUN 5 mg/dL (8-22); CALCIUM 7.9 mg/dL (8.8-10.2); CHLORIDE 107 mmol/L (98-107); COSMO 273; CREATININE 0.7 mg/dL (0.7-1.2); ESTIMATED GFR > 60; GLUCOSE 105 mg/dL (70-104); GOT 677 U/L (10-34); GPT 663 U/L (10-44); POTASSIUM 3.8 mmol/L (3.5-5.1); SODIUM 138 mmol/L (136-145); TCO2 19 mmol/L (25-35); TOTAL BILIRUBIN 8.77 mg/dL (0.20-1.00); TOTAL PROTEIN 5.3 g/dL (6.3-8.3)
[2018-11-10] MEDS: M.V.I.-12 10 ML, FOLIC ACID 1 MG, MAGNESIUM SULFATE 1 GM, THIAMINE 100 MG in NS 1,000 ML IV SCH (08:35)
[2018-11-10] MEDS: LACTULOSE PO SCH (08:36)
[2018-11-10] MEDS: PLETAL PO SCH (08:36)
--- NOTE | 2018-11-10 08:36 | PROGRESS NOTE ---
DATE: 11/10/2018 Mr. Lovelace has hepatitis. His liver function tests are slowly improving with supportive care. Studies of his gallbladder suggested no stones, no evidence of acute cholecystitis. He did have a decreased ejection fraction with HIDA scan. I feel his main issue is hepatitis and not gallbladder and will allow him to heal his hepatitis prior to any consideration of cholecystectomy. I am not sure that is needed at this time. His heart rate is 80, blood pressure 130/62, O2 saturation 99%. He is afebrile. He is receiving IV antibiotics prophylactically. On exam of his abdomen, it is soft. He has no significant tenderness in the upper abdomen. He is tolerating a diet. We will sign off. Let us know if we can be of assistance. cc: Asia Townsend MD
[2018-11-10] MEDS: COLACE PO SCH (08:37)
[2018-11-10] MEDS: TRENTAL PO SCH ×2 (08:37→12:42)
[2018-11-10] MEDS: NS 1,000 ML IV SCH (08:45)
[2018-11-10 12:53] LABS: INR 1.05; PROTIME 14.6 Seconds (11.0-16.0)
[2018-11-10 14:00] VITALS: BP 159/73
[2018-11-10] MEDS ORDERED: PROTONIX PO SCH (15:00)
--- NOTE | 2018-11-11 15:34 | DISCHARGE SUMMARY ---
ADMISSION DATE: 11/01/2018 DISCHARGE DATE: 11/10/2018 DISCHARGE DIAGNOSES: 1. Likely alcoholic hepatitis. 2. Possible autoimmune hepatitis with a positive CARLITO and anti smooth muscle antibody, possibly a combination of both. 3. Elevated liver function tests, likely secondary to #1. 4. Chronic alcoholism. PROCEDURES PERFORMED: 1. Abdomen and pelvis CT scan dated 11/01/2018 impression: Negative exam. 2. Abdomen CT dated 11/02/2018 impression: Mildly heterogeneous attenuation of liver suggesting asymmetrical fatty infiltration, no discrete focal liver lesion identified, moderately distended gallbladder, a small amount of pericholecystic fluid, early cholecystitis cannot be excluded. 3. HIDA scan dated 11/03/2018 impression: Abnormal exam with a below-normal gallbladder ejection fraction. HOSPITAL COURSE: A 33-year-old male presented to [facility] ER and admitted on 11/01/2018 complaining of left lower quadrant abdominal pain that radiated throughout the entire stomach, vomiting as well. The symptoms started the Tuesday prior to admission and have been progressively worsening. He states that he drinks a pint of liquor and 4 to 5 beers daily and has been doing that for about 10 years. In the emergency department, he was found to have an elevated bilirubin at 12.8, AST around 2100, ALT 1900, and alkaline phosphatase 217. Initial CT scan of the abdomen and pelvis was negative. Apparently, it looks like an abdominal ultrasound showed moderately distended gallbladder. No evidence of gallstones. Then the CT abdomen was repeated on 11/02/2018 that showed a mildly heterogeneous attenuation of the liver suggesting asymmetrical fatty infiltration, no discrete focal liver lesion identified. Also, moderately distended gallbladder, a small amount of pericholecystic fluid. Early cholecystitis cannot be excluded, so a HIDA scan was done and showed an abnormal exam with a below- normal gallbladder ejection fraction. Because of that, we put this patient on IV fluids and also he was placed on antibiotics. He was placed n.p.o. and we continued with supportive care. We obtained a surgical consultation, but they believe that the problem was a primary liver disease consisted with acute hepatitis. So, we monitored this patient closely. He was improving slowly on a daily basis. His liver function tests were trending down. Like I mentioned before, Surgery Department evaluated this patient and they monitored the patient. They did not think that this patient had cholecystitis. Bilirubin, AST, ALT, and alkaline phosphatase trending down slowly and, even though the liver function tests were going down, they decided to transfer this patient to [facility] for Gastroenterology evaluation. We found out that this patient has also a negative hepatitis panel and a positive CARLITO and anti smooth muscle antibody. We we put this patient on banana bag and he received thiamine and folic acid through that. He was tolerating p.o. He was not complaining of nausea and vomiting. He was complaining of occasional headache. He has really good family support, including his mother and his . He was advised on a daily basis about stopping drinking alcohol. Surgery Department basically signed off today after ruling out cholecystitis. We communicated with [facility], specifically with Dr. Sewell, who is a activity aide. I personally talked to her today and I let her know that this patient will be discharged. She already arranged a followup for this patient, and the family will call next Tuesday to her office to corroborate the appointment and follow up with her. Also, today I had a conversation with Gastroenterology Department, Dr. Mclaughlin, who suggested that this patient can be discharged with a strict followup by Gastroenterology Department as well, since the liver enzymes are trending down and he is not having too much symptoms now. Of course, he recommended also that this patient needs to stop drinking completely. Otherwise, his problem can be worse. I made sure that this patient understands that information. I set up an appointment with Gastroenterology Department for next week. He will follow up with Dr. Goldstein next at 1:15 p.m. At the moment of discharge this patient was tolerating p.o. He was ambulating, completely awake, alert and oriented x3. DISCHARGE PHYSICAL EXAMINATION: Vital signs: Temperature 97.8 degrees, pulse 106, respiratory rate 20, blood pressure 159/73, oxygen saturation 98 on room air. HEENT: Head normocephalic, no trauma. PERRLA. Icteric sclerae. Skin: Jaundiced. Neck: Neck is supple. No JVD. Central trachea. Chest: Clear to auscultation. No wheezing. No rales. Abdomen: Soft. He has some tenderness to palpation at the level of the epigastric area, right upper quadrant. Mild distention. Positive bowel sounds. Extremities: No edema, no clubbing, no cyanosis. Neurological: The patient is alert and oriented x3. No focal deficits. LABORATORY: Sodium 136, potassium 3.8, chloride 107, bicarbonate 19. BUN 5, creatinine 0.7, glucose 105, calcium 7.9, total bilirubin 8.7. AST 677, ALT 663, alkaline phosphatase 176, albumin 2.8. DISPOSITION: He will follow up with Dr. Goldstein next week, at 1:15 p.m. We want to set up also a liver biopsy to rule out not only an alcoholic hepatitis, but also an immunological problem. I discussed this with the activity aide at [facility] as well, and this doctor wants the results and also the slides if possible. I told the mother and the patient about this. They are aware of that. DISCHARGE MEDICATIONS: Thiamine 100 mg p.o. daily, Trental 400 mg p.o. t.i.d., Protonix 40 mg p.o. q. 24 hours, lactulose 30 mL p.o. b.i.d., folic acid 1 mg p.o. daily, and docusate 100 mg p.o. b.i.d. Family and patient has been is instructed about the stool softeners; they can decrease the dose if he is having more than 3 bowel movements per day. TIME DISCHARGING THIS PATIENT: 35 minutes. cc: Yony Mario MD
== END 2018-11-10 14:53 | disposition home or self-care (01) | DRG 433 ==
LOC: P.ED 16:21 → P.MEDSURG 16:22 → SUATTDRO 16:22 → 4N 11-08 15:33
PROVIDERS: ATTEND Internal Medicine
CPT/HCPCS: 36415; 74160; 74176; 76705; 78227; 80053; 80074; 80307; 80320; 80324; 80329; 81001; 82003; 82055; 82103; 82150; 82390; 82948; 83516; 83690; 84155; 84165; 85025; 85610; 85730; 86038; 86039; 86235; 86255; 87088; 96360; 99285; A9270; A9537; C9113; G0480; G6039; G6040; J0360; J2060; J2270; J2543; J3411; J3475; J7030; J7509; Q9967; S0164; XXXXX